=== PATIENT | male | born 1965 | race Caucasian/White ===

== ENCOUNTER 2016-10-09 15:46 | Emergency (ER) | payer OTHER ==
[~2016-10-09] VITALS: Ht 177.8 cm; Wt 106.0 kg
[2016-10-09 15:52] VITALS: Ht 177.8 cm; Wt 106.0 kg
[2016-10-09] MEDS ORDERED: DIAZEPAM 5 MG/ML SYG IV ONE (17:00)
[2016-10-09 17:23] LABS: ADD SCAN DIFF NO
[2016-10-09 17:44] LABS: BASOPHILS % 0.6 % (0.0-2.0); EOSINOPHILS # 0.1 10^3/ul (0.0-0.5); EOSINOPHILS % 2.1 % (0.0-7.0); HEMATOCRIT 45.7 % (42.0-52.0); HEMOGLOBIN 15.5 g/dl (14.0-18.0); LYMPHOCYTES # 1.4 10^3/ul (0.8-2.9); MEAN CORPUSCULAR HEMOGLOBIN 28.9 pg (29.0-33.0); MEAN CORPUSCULAR HGB CONC 33.9 g/dl (32.0-37.0); MEAN CORPUSCULAR VOLUME 85.1 fl (82.0-101.0); MEAN PLATELET VOLUME 10.9 fl (7.4-10.4); MONOCYTE # 0.4 10^3/ul (0.3-0.9); MONOCYTES % 7.8 % (0.0-11.0); NEUTROPHIL # 3.1 10^3/ul (1.6-7.5); NEUTROPHILS % 60.3 % (39.0-77.0); PLATELET COUNT 255 10^3/UL (140-415); RED BLOOD COUNT 5.37 10^6/ul (4.70-6.10); RED CELL DISTRIBUTION WIDTH 12.4 % (11.5-14.5); WHITE BLOOD COUNT 5.1 10^3/ul (4.8-10.8)
[2016-10-09 17:48] LABS: POTASSIUM 4.2 mmol/L (3.5-5.1)
[2016-10-09 17:50] LABS: CREATININE 0.89 mg/dl (0.61-1.24)
[2016-10-09 17:51] LABS: CALCIUM 10.2 mg/dl (8.4-10.2)
[2016-10-09] MEDS ORDERED: SOD CHLORIDE 0.9% 100 ML ONE (18:06)
[2016-10-09] MEDS ORDERED: IOHEXOL 100 ML ONE (18:06)
[2016-10-09] MEDS ORDERED: IOHEXOL 350MG/ML 50 ML BTL ONE (18:06)
[2016-10-09] MEDS ORDERED: morphine 4 MG/ML VIAL IV STA (18:51)
--- NOTE | 2016-10-09 19:11 | RADRPT ---
PROCEDURE: CTA Neck. CLINICAL INDICATION: Patient experiencing Chest Pain TECHNIQUE: The study was performed utilizing a multidetector CT scanner. Direct spiral 1 mm axial sections were obtained through the neck with the use of 125 ml of the peak 350 intravenous contrast material. Coronal and sagittal as well as maximal intensity projection reformations were obtained. CTDI: 30.52 mGy and DLP: 1117.41 mGy.cm.One or more of the following dose reduction techniques were utilized: Automated exposure control, adjustment of the mA and/or kV according to patient size, use of iterative reconstruction technique. COMPARISON: No prior studies are available for comparison. FINDINGS: Aortic arch: The aortic arch is normal in caliber. Atherosclerotic calcification of the aortic arch. Normal appea ree of the origin of the great vessels. Common carotid arteries: The common carotid arteries are patent and normal in caliber bilaterally. Internal carotid arteries: JEVON/ECA: Normal appearance of the internal carotid artery bulb. The distal internal carotid artery is patent and normal in caliber. No evidence of hemodynamically significant stenosis. External carotid jak ry and its branches are normal patent and normal in caliber. LICA/ECA : Normal appearance of the internal carotid artery bulb. The distal internal carotid artery is patent and normal in caliber. No evidence of hemodynamically significant stenosis. External carotid jak ry and its branches are normal patent and normal in caliber. Vertebral arteries: The vertebral arteries are codominant, patent and normal in caliber. Degenerative disk and spondylitic changes at C6-C7. IMPRESSION: Unremarkable CT angiogram of the extracranial carotid vasculature. RPTAT:AAJJ Physician Jonah Date Time Electronically viewed and signed by Physician Jonah on 10/09/2016 19:11 CAREN/
--- NOTE | 2016-10-09 19:12 | RADRPT ---
PROCEDURE: CTA Chest. CLINICAL INDICATION: Chest pain, rule out pulmonary embolism. TECHNIQUE: Direct spiral 2.5 mm axial sections were obtained from the thoracic inlet to the upper abdomen with the use of 125 cc of Omnipaque 350 nonionic intravenous contrast material. Axial MIP, c oronal, and sagittal reformations were obtained. The images were reviewed on a PACS workstation. CTD Ivol: 22.80 mGy. DLP: 1117.41 mGy-cm. One or more of the following dose reduction techniques were used: - Automated exposure control. - Adjustment of the mA and/or kV according to patient size. - Use of iterative reconstruction technique. COMPARISON: None. FINDINGS: No pulmonary embolism is identified, however evaluation for subsegmental emboli is limited by respir atory motion. The main pulmonary artery is top copy normal in caliber. There is no aortic aneurysm or dissection. The heart is enlarged. There is no pericardial effusion. There is elevation of the hemidiaphragm and right lower lung atelectasis. No pleural effusion or pne umothorax is identified. No suspicious thyroid lesion is seen. There is no thoracic lymphadenopathy. The trachea and mainste m bronchi are patent. Limited evaluation of the upper abdomen is unremarkable. There is no suspicious osseous lesion. IMPRESSION: 1. No pulmonary embolism is identified, however evaluation for subsegmental emboli is limited by re spiratory motion. 2. No aortic aneurysm or dissection. 3. Cardiomegaly. 4. Elevation of the hemidiaphragm and right lower lung atelectasis. RPTAT: HTAR .Naeem Russ MD, MD Date Time Electronically viewed and signed by .Naeem Russ MD, on 10/09/2016 19:11 .R/
[2016-10-09] MEDS ORDERED: HYDR-906 PO (19:25)
[2016-10-09] MEDS ORDERED: DIAZ-90 PO (19:25)
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
[2016-10-09 19:52] VITALS: BP 138/78; PULSE 78; RESP 17
== END 2016-10-09 19:54 | disposition home or self-care (01) ==
LOC: E/R 15:46
DX: S19.9XXA Unspecified injury of neck, initial encounter (principal); V29.9XXA Motorcycle rider (driver) (passenger) injured in unspecified traffic accident, initial encounter
CPT/HCPCS: 36415; 70498; 71275; 80048; 85025; 96374; 96375; 99285; J2270; J3360; Q9967